=== PATIENT | male | born 1955 | race Caucasian/White ===

== ENCOUNTER 2019-06-16 10:11 | Outpatient (CLI) | payer BC, SELFPAY ==
--- NOTE | ~2019-06-16 | US_ITS ---
US right upper quadrant DATE: 06/16/2019 10:47 INDICATION: Hepatomegaly. Status post cholecystectomy. TECHNIQUE: Real-time imaging and color flow imaging and Doppler analysis of the right upper quadrant COMPARISON: None FINDINGS: No hepatic space-occupying mass lesion is detected. There is normal hepatic portal venous f low direction. The pancreas is largely obscured by bowel gas. The gallbladder is surgically absent. The common bile duct measures 2.4 mm. IMPRESSION: The pancreas is largely obscured by bowel gas Status post cholecystectomy Reviewed, dictated and finalized at [facility]. Reviewed, dictated and finalized at location A.
== END 2019-06-16 10:12 | disposition home or self-care (01) ==
PROVIDERS: PCP Family Medicine; Visit Provider Internal Medicine Gastroenterology
DX: R16.0 Hepatomegaly, not elsewhere classified (principal)
CPT/HCPCS: 76705

== ENCOUNTER → 2022-11-16 11:14 | Outpatient (CLI) | payer MEDICARE, SELFPAY ==
--- NOTE | ~2022-11-16 | US_ITS ---
EXAMINATION: US soft tissue head and neck DATE: 11/16/2022 11:37 INDICATION: Right neck mass. TECHNIQUE: Multiple grayscale and Doppler ultrasound images of the neck were obtained. COMPARISON: None FINDINGS: In the right neck, there is a 3.7 x 1.8 x 3.0 cm mixed cystic and solid hypoechoic mass wit h internal vascular flow in a major salivary gland that is likely the right parotid gland. IMPRESSION: 1. 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 The differential diagnosis includes benign mixed tumor, Warthin tumor, and less likely primary malignancy or sophie metastatic disease. Reviewed, dictated and finalized at location A. IMPRESSION: 1. 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 The differential diagnosis includes benign mixed tumor, Warthin tumor, and less likely primary malignancy or sophie metastatic di [place].
== END ==
PROVIDERS: PCP Family Medicine; Visit Provider Family Medicine
DX: R22.1 Localized swelling, mass and lump, neck (principal); D11.0 Benign neoplasm of parotid gland
CPT/HCPCS: 76536

== ENCOUNTER 2023-03-17 07:54 | Outpatient (NON) | payer MEDICARE, SELFPAY | END 2023-03-17 07:55 | disposition home or self-care (01) | PROVIDERS: PCP Family Medicine; Visit Provider Internal Medicine Gastroenterology | DX: Z86.010 Personal history of colon polyps (principal) | CPT/HCPCS: 88305 ==

== ENCOUNTER 2023-03-17 08:49 | Day surgery (SDC) | payer MEDICARE, SELFPAY ==
[2023-02-12 09:57] VITALS: BMI 22.0
[2023-02-15 13:18] VITALS: BMI 22.2
--- NOTE | 2023-02-26 08:29 | SUR.PREOP ---
pt states no change in recent health hx/no new meds/new time and date provided/acknowledges understanding
[2023-03-17 09:33] VITALS: BP 150/79; PULSE 99; RESP 18; TEMP 37.4; O2SAT 100
[2023-03-17] MEDS: LACTATED RINGERS 1,000 ML 150 ML IV CONT (09:45)
--- NOTE | 2023-03-17 10:05 | PM.HPGS ---
History of Present Illness History of Present Illness Consent: Risks, benefits, and alternatives have been discussed and questions answered. Patient agrees to proceed with procedure. Chief complaint: Hx colon polyps, hx of Ordonez's Esophagus Narrative: Sumit Mar is a 67 year old male presents for both colonoscopy and EGD. Has a history of colon polyps removed the colon 4 years ago. This was performed in [place]. Patient also was told he had Ordonez's esophagus. He was placed on pantoprazole 20mg p.o. daily. This was recently increased to40mg p.o. daily. Patient denies any dysphagia. Apparently there was no dysplasia. Patient has decided against ablation therapy which had previously been recommended. Current management decisions suggested this was appropriate. Follow-up EGD advised at this time Review of Systems Review of Systems: Review of systems noncontributory. [facility] Past Medical History Medical History Allergies Anxiety GERD (gastroesophageal reflux disease) Surgical History Surgical History Hx laparoscopic cholecystectomy Family History Family History Other Family history of cardiovascular disease Social History Social History Smoking status: Never smoker Smoking end date: 02/09/96 Alcohol intake: current Substance use: never Living arrangements: with family Additional living arrangements comments: Spiritual care concerns: No Meds Home Medications and Allergies Home Medications Medication Instructions Recorded Confirmed Type alprazolam 1 mg tablet 1 mg PO TID PRN Anxiety 01/19/23 03/17/23 History pantoprazole 20 mg tablet,delayed 20 mg PO QAM 01/19/23 03/17/23 History release tamsulosin 0.4 mg capsule 0.4 mg PO DAILY 01/19/23 03/17/23 History Allergies Allergy/AdvReac Type Severity Reaction Status Date / Time No Known Allergies Allergy Mild Verified 03/17/23 09:29 Vital Signs Vital Signs - 24 hr 03/17/23 09:33 Temperature 99.3 F Pulse Rate 99 Respiratory Rate 18 Blood Pressure 150/79 H Pulse Oximetry 100 Oxygen Delivery Room Air Exam Narrative: Physical exam reveals patient to be alert. Vital signs stable. HEENT exam is unremarkable. Patient is anicteric. Lungs are clear to auscultation and percussion. Is without murmur or extra sounds. Abdomen sounds are present soft nontender with no organomegaly. Digital external rectal exam is normal. Assessment and Plan Assessment and plan (1) Personal history of colonic polyps: Code(s): Z86.010 - Personal history of colonic polyps Status: Acute Assessment and Plan: Has a history of colon polyps removed 4 years ago. Plan for surveillance colonoscopy now and consider this at 5 year intervals. Further recommendations may be given after endoscopy. (2) Ordonez's esophagus: Code(s): K22.70 - Ordonez's esophagus without dysplasia Status: Acute Assessment and Plan: Patient known Ordonez's esophagus. Follow-up EGD advised at this time. I understand no dysplasia was found the time of last endoscopy. Continue to p.o. daily and antireflux measures are encouraged at this time.
--- NOTE | 2023-03-17 10:31 | WPDANESEPPF ---
Anes - Initial Pre Proc Eval Procedure: Operation Date: 03/17/23 11:00 Proposed Procedures p Esophagogastroduodenoscopy - Steve Camp MD s Colonoscopy - Steve Camp MD Date/Time: 03/17/23 10:31 Surgeon: Steve Camp MD Pre Op Diagnosis: Hx colon polyps, hx of Ordonez's Esophagus Patient Data Age: 67 Gender: M Height: 1.78 m Weight: 68.6 kg Last Vital Signs Temp 37.4 C 03/17/23 09:33 Pulse 99 03/17/23 09:33 Resp 18 03/17/23 09:33 BP 150/79 H 03/17/23 09:33 Pulse Ox 100 03/17/23 09:33 O2 Del Method Room Air 03/17/23 09:33 Allergies Allergy/AdvReac Type Severity Reaction Status Date / Time No Known Allergies Allergy Mild Verified 03/17/23 09:29 Home Medications Medication Instructions Recorded Confirmed Type alprazolam 1 mg tablet 1 mg PO TID PRN Anxiety 01/19/23 03/17/23 History pantoprazole 20 mg tablet,delayed 20 mg PO QAM 01/19/23 03/17/23 History release tamsulosin 0.4 mg capsule 0.4 mg PO DAILY 01/19/23 03/17/23 History Patient hx anesthesia problems: none Family hx anesthesia problems: none Results Review: All pre-operative results and documents have been reviewed as part of the pre-operative evaluation. [facility] Past Medical History Medical History Allergies Anxiety GERD (gastroesophageal reflux disease) Surgical History Surgical History Hx laparoscopic cholecystectomy Family History Family History Other Family history of cardiovascular disease Social History Social History Smoking status: Never smoker Smoking end date: 02/09/96 Alcohol intake: current Substance use: never Living arrangements: with family Additional living arrangements comments: Spiritual care concerns: No Anes - Eval Final PreProcedure Day of Procedure 03/17/23 10:31 Patient weight: normal Heart: regular rate and rhythm Lungs: decreased breath sounds Airway: Mallampati scale class II Neurological: alert and oriented Last oral intake: >/= 8 hours ASA classification: III Emergent: no Anesthetic plan: proceed Anesthesia type and monitoring: general GIVS and standard monitoring Results Review: All pre-operative results and documents have been reviewed as part of the pre-operative evaluation. Informed Consent: The patient's anesthetic plan and its attendant risks and benefits were discussed with the patient/family/POA. Questions were solicited and answers provided to the satisfaction of the patient/family/POA.
[2023-03-17 11:10] VITALS: BP 133/78; PULSE 78; RESP 17; O2SAT 97
[2023-03-17 11:20] VITALS: BP 122/82; O2SAT 98
[2023-03-17 11:30] VITALS: BP 121/80; PULSE 76; RESP 17; O2SAT 98
--- NOTE | 2023-03-17 11:44 | WPDANESPN ---
Anes - Prog Note Post-Op Date/Time: 03/17/23 11:44 Cardiovascular status: normal Respiratory status: normal Airway patency: baseline Mental status: baseline Post-Op hydration status: normal Vital Signs: Last Vital Signs Temp 37.4 C 03/17/23 09:33 Pulse 78 03/17/23 11:10 Resp 17 03/17/23 11:10 BP 122/82 03/17/23 11:20 Pulse Ox 98 03/17/23 11:20 O2 Del Method Room Air 03/17/23 11:20 Pain Score (VAS): 0 Patient Feedback: Patient satisfied with anesthetic care.
== END 2023-03-17 11:54 | disposition home or self-care (01) ==
PROVIDERS: PCP Family Medicine; Visit Provider Internal Medicine Gastroenterology
PROC: 0DJ08ZZ Inspection of Upper Intestinal Tract, Via Natural or Artificial Opening Endoscopic (ICD-10-PCS; CPT 43235; principal; 2023-03-17 11:00)
PROC: 0DJD8ZZ Inspection of Lower Intestinal Tract, Via Natural or Artificial Opening Endoscopic (ICD-10-PCS; CPT 45378; 2023-03-17 11:00)
DX: Z86.010 Personal history of colon polyps (principal); K22.70 Barrett's esophagus without dysplasia; D12.5 Benign neoplasm of sigmoid colon; K57.30 Diverticulosis of large intestine without perforation or abscess without bleeding; K64.8 Other hemorrhoids
CPT/HCPCS: 45385; 43239

== ENCOUNTER 2024-04-03 11:51 | Outpatient (CLI) | payer MEDICARE, MEDICAID, SELFPAY ==
--- OUTSIDE RECORDS SUMMARY | 2024-04-03 13:42 | XMS_ITS | CONTINUITY OF CARE DOCUMENT ---
Author Name ranjithgiannitrudy Address Unknown Organization [facility] Address [address] [place] [address] Phone [phone] Care Team Providers Care Armoured Corps Officer Name Role Phone Casimiro BURCH, Ricky Unavailable [phone] Hayley BURCH, Shanon Unavailable [phone] Shanon Hardy MD Unavailable [phone] INSURANCE PROVIDERS Payer name Policy type / Coverage type [place] red constitution party ID AARP MEDICARE ADVANTAGE HMO-POS HMO [id number]
--- OUTSIDE RECORDS SUMMARY | 2024-04-03 13:42 | XMS_ITS | Referral Summary ---
Author Organization [facility] Address [address] [place] [address] Care Team Providers Care Bilingual Customer Service Specialist Name Role Phone Shanon Sheehan MD Primary Care Provider + Allergies No known active allergies Medications ALPRAZolam (XANAX) 1 mg tabletIndication s:anxiety Take 0.5 mg by mouth nightly as needed for anxiety Active pantoprazole DR (PROTONIX) 40 mg EC tabletIndication s:Treatment of Non-Bleeding Gastric Disorder Take 1 tablet (40 mg total) by mouth every morning Active tamsulosin (FLOMAX) 0.4 mg extended release capsuleIndicatio ns:benign prostatic hyperplasia with lower urinary tract sx Take 1 capsule (0.4 mg total) by mouth every morning Active cholecalciferol (VITAMIN D-3) 1,000 unitIndications: supplement Take 1 tablet/capsule (1,000 Units total) by mouth every morning Active ibuprofen 200 mg tab/cap Take 4 tablet/capsule (800 mg total) by mouth every 6 (six) hours as needed for pain Active acetaminophen (TYLENOL) 500 mg tablet Take 2 tablets (1,000 mg total) by mouth every 6 (six) hours as needed for pain Active cannabidiol, CBD, (EPIDIOLEX) 100 mg/mL solution Take by mouth Active oxyCODONE (ROXICODONE) 5 mg immediate release tabletIndication s:Pain Take 1 tablet (5 mg total) by mouth every 4 (four) hours as needed for pain 30 tablet 4 Active Additional Information Patient not taking.Reported on 06/23/2023 Active Problems Problem Noted Date Diagnosed Date Parotid mass 04/14/2023 Overview (06/23/2023): DIAGNOSIS: Right parotid tumor PROCEDURE PERFORMED: ([facility]ius 06/07/23) Right parotidectomy Lytic bone lesion of left femur 05/11/2017 Social History Tobacco Use Types Packs/Day Years Used Date Smoking Tobacco: Former Smokeless Tobacco: Never Tobacco Cessation:Counseling Given: Not Answered AUDIT-C Answer Date Recorded Q1: How often do you have a drink containing alc ohol? Monthly or less 05/31/2023 Q2: How many drinks containi ng alcohol do you have on a typical day when you are drinking? 1 or 2 05/31/2023 Q3: How often do you have si x or more drinks on one occasion? Never 05/31/2023 Personal Safety Answer Date Recorded Have you ever been in or are you currently in a harmful physical or emotional relationship or is someone making you feel afraid or unsafe? 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 Gender Identity Not on file Sexual Orientation Not on file Last Filed Vital Signs Vital Sign Reading Time Taken Comments Blood Pressure 131/78 06/07/2023 6:10 PM CDT Pulse 55 06/07/2023 6:10 PM CDT Temperature 36.6 C (97.9 F) 06/07/2023 6:30 PM CDT Respiratory Rate 12 06/07/2023 6:10 PM CDT Oxygen Saturation 100% 06/07/2023 6:10 PM CDT Inhaled Oxygen Concentration - - Weight 71.7 kg (158 lb) 06/23/2023 10:46 AM CDT Height 177.8 cm (5' 10 ) 06/23/2023 10:46 AM CDT Body Mass Index 22.67 06/23/2023 10:46 AM CDT Plan of Treatment Not on file Procedures Procedure Name Priority Date/Time Associated Diagnosis Comments CT ABDOMEN PELVIS W CONTRAST Routine 12/02/2015 8:25 PM CDT from Last 3 Months or Most Recently Relevant to Health Maintenance Results * CT Abdomen Pelvis W Contrast (12/02/2015 8:25 PM CDT) Anatomical Region Laterality Modality Body N/A Computed Tomogra phy 12/02/2015 8:25 PM CDT Impressions 12/02/2015 10:16 PM CDT Suspected acute calculus cholecystitis. See above. Automated exposure control was used as a dose optimization technique for this examination. THIS IS AN ELECTRONICALLY VERIFIED REPORT 12/02/2015 10:12 PM: Cher Andrade M.D. Cher Andrade M.D. JS:[email or web address] 10:12 PM 10:12 PM [facility] [EOD] Narrative 12/02/2015 10:16 PM CDT EXAMINATION: CT ABDOMEN AND PELVIS WITH INTRAVENOUS CONTRAST HISTORY: Diffuse, intermittent abdominal pain for 1 month, denies vomiting, normal bowel movement this morning, hypotensive, acute onset symptoms COMPARISON: None available TECHNIQUE: Axial computed tomography of the abdomen and pelvis with intravenous contrast administration per standard protocol; coronal and sagittal reformatted images; 100 mL Omnipaque 350 intravenously at the right antecubital fossa without incident FINDINGS: The heart size is unremarkable. There is no pericardial fluid. The lung bases are unremarkable. There is gallbladder wall thickening and pericholecystic fluid most consistent with acute cholecystitis. Hyperdensities within the gallbladder lumen concerning for small gallstones, one of which appears to be within the gallbladder neck or cystic duct. The liver, spleen, pancreas, adrenal glands and kidneys are unremarkable as evaluated. The stomach is partially distended, grossly unremarkable. The small bowel is unremarkable as imaged. Gas and stool are present throughout a normal-caliber colon. Colonic diverticulosis is visible. The appendix is normal. There is no free intraperitoneal gas or dependent free pelvic fluid. There is what is likely a diverticulum at the posterior aspect of the bladder on the right. Pelvic phleboliths are noted. The prostate is unremarkable. There is atherosclerotic calcification within the major arterial vasculature. There is no obvious lymphadenopathy. A hernia repair is noted at the left inguinal region. Bone windows reveal no acute fracture or suspicious lytic/blastic lesion. Degenerative joint disease is noted. There is a lytic focus within the medullary cavity of the left proximal femur with a thickened sclerotic rim, nonspecific. Procedure Note Provider, MD Delta - 06/25/2020 EXAMINATION: CT ABDOMEN AND PELVIS WITH INTRAVENOUS CONTRAST HISTORY: Diffuse, intermittent abdominal pain for 1 month, deniesvomiting, normal bowel movement this morning, hypotensive, acute onset symptoms COMPARISON: None available TECHNIQUE: Axial computed tomography of the abdomen and pelvis with intravenous contrast administration per standard protocol; coronal and sagittal reformatted images; 100 mL Omnipaque 350 intravenously at theright antecubital fossa without incident FINDINGS: The heart size is unremarkable. There is no pericardial fluid. The lungbases are unremarkable. There is gallbladder wall thickening and pericholecystic fluid mostconsistent with acute cholecystitis. Hyperdensities within the gallbladder lumen concerning for small gallstones, one of which appears to be within the gallbladder neck or cystic duct. The liver, spleen, pancreas, adrenalglands and kidneys are unremarkable as evaluated. The stomach is partially distended, grossly unremarkable. The small bowelis unremarkable as imaged. Gas and stool are present throughout anormal-caliber colon. Colonic diverticulosis is visible. The appendix is normal. Thereis no free intraperitoneal gas or dependent free pelvic fluid. There is what is likely a diverticulum at the posterior aspect of thebladder on the right. Pelvic phleboliths are noted. The prostate isunremarkable. There is atherosclerotic calcification within the major arterialvasculature. There is no obvious lymphadenopathy. A hernia repair is noted at the left inguinal region. Bone windows reveal no acute fracture or suspicious lytic/blastic lesion. Degenerative joint disease is noted. There is a lytic focus within the medullary cavity of the left proximal femur with a thickened scleroticrim, nonspecific. IMPRESSION: Suspected acute calculus cholecystitis. See above. Automated exposure control was used as a dose optimization technique forthis examination. THIS IS AN ELECTRONICALLY VERIFIED REPORT 12/02/2015 10:12 PM: Cher Andrade M.D. Cher Andrade M.D. JS:erwin Munguia: 12/02/201510:12 PM 10:12 PM [facility] [EOD] Chavez Palomares II, MD IMG CT PROCEDURES Final R esult from Last 3 Months or Most Recently Relevant to Health Maintenance Insurance [facility] MEDICARE SOLUTIONS [facility] MEDICARE SOLUTIONS IDPA Care Teams Bilingual Customer Service Specialist Relationship Specialty Start Date End Date Shanon Sheehan MD [address] [place] [address] [place] [address] PCP - General Family Medicine 05/18/23
--- OUTSIDE RECORDS SUMMARY | 2024-04-03 13:42 | XMS_ITS | Clinical Summary ---
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 Gender Identity Not on file Sexual Orientation Not on file Obstetrics History Last Filed Vital Signs Vital Sign Reading [...] 06/23/2023 10:46 AM CDT Plan of Treatment Health Maintenance Due Date Last Done Comments Colon Cancer Screening-Colonoscopy 1955 Depression Screening 1955 Hepatitis C Screening 1955 Prostate Cancer Screening-PSA 1956 Hepatitis B Screening 1974 Pneumococcal vaccine 65+ (1 of 1 - PCV) 2006 Zoster Vaccine (1 of 2) 2006 Abdominal Aortic Aneurysm (A AA) Screen 2021 12/02/2015 Well Visit 65+ 2021 Influenza Vaccine (#1) 2023 0, 11/03/2018, 11/10/2017, Additional history exists Fall Risk Assessment 06/06/2024 06/07/2023 DTaP/Tdap/Td Vaccine (2 - Td or Tdap) 11/12/2026 11/12/2016 Procedures Procedure Name Priority Date/Time Associated Diagnosis [...] Andrade M.D. [email or web address] 10:12 PM 10:12 PM [facility] [EOD] Narrative 12/02/2015 10:16 PM CDT EXAMINATION: [...] [email or web address]:erwin 10:12 PM 10:12 PM [facility] [EOD] Chavez Palomares II, MD IMG CT PROCEDURES Final R esult from Last 3 Months or Most Recently Relevant to Health Maintenance Insurance [employer] MED[employer] SOLUTIONS IDPA MEDICARE AdT[employer] IDPA Care Teams Site Auditor Relationship Specialty Start Date End Date Shanon Sheehan MD [address] [address] PCP - General Family Medicine 05/18/23
--- OUTSIDE RECORDS SUMMARY | 2024-04-03 13:42 | XMS_ITS | Clinical Summary ---
Author Organization [facility] Address [address] [place] [address] Care Team Providers Care Papier Mache Molder Name Role Phone Unavailable Primary Care Provider Unavailabl e Social History Tobacco Use Types Packs/Day Years Used Date Smoking Tobacco: Never Assessed Sex and Gender Information Value Date Recorded Sex Assigned at Not on file Legal Sex Male 7:20 PM CDT Gender Identity Not on file Sexual Orientation Not on file Plan of Treatment Health Maintenance Due Date Last Done Comments Colorectal Cancer Screening Colonoscopy (10 Years) 1956 Hepatitis C 1974 DTaP, Tdap and Td Vaccines ( 1 - Tdap) 12/22/1975 Zoster Vaccines (1 of 2) 2006 Pneumococcal Vaccine: 65+ Ye ars (1 of 1 - PCV) 2021 COVID-19 Vaccine ( - 2023-2 5 season) 2023 Influenza Adult (#1) 2023 RSV Immunization or 60+ Years (1 - 1-dose 75+ series) 12/22/2031 Meningococcal B Vaccine Aged Out No l onger eligible based on patient's age to complete this topic Meningococcal Vaccine Aged Out No shola desiree eligible based on patient's age to complete this topic RSV Immunizations Under 20 Months Aged Out No longer eligible based on patient's age to complete this topic
[2024-04-03 20:07] LABS: Alanine Aminotransferase 19 U/L (6-50); Alkaline Phosphatase 81 U/L (38-126); Anion Gap 6 mmol/L (4-12); Aspartate Amino Transferase 54 U/L (17-59); Bilirubin,Total 0.4 mg/dL (0.2-1.3); Blood Urea Nitrogen 14 mg/dL (9-20); Carbon Dioxide 31 mmol/L (22-30); Chloride 103 mmol/L (98-107); Estimated Glomerular Filt Rate > 60; Glucose 90 mg/dL (65-110); Potassium 5.2 mmol/L (3.4-5.0); Sodium 140 mmol/L (137-145)
[2024-04-03 20:30] LABS: Prostate Specific Antigen 2.2 ng/mL (< OR = 4.0)
[2024-04-03 21:26] LABS: Hemoglobin A1C 5.7 % (<5.7)
== END 2024-04-03 11:52 | disposition home or self-care (01) ==
LOC: ANHBWCLAB 11:54
PROVIDERS: PCP Nurse Practitioner Adult Health; Visit Provider Nurse Practitioner Adult Health
DX: Z12.5 Encounter for screening for malignant neoplasm of prostate (principal); R73.9 Hyperglycemia, unspecified; R73.03 Prediabetes
CPT/HCPCS: 36415; 80053; 83036; 84153; G0103

== ENCOUNTER 2024-04-04 10:12 | Outpatient (CLI) | payer MEDICARE, MEDICAID, SELFPAY ==
--- OUTSIDE RECORDS SUMMARY | 2024-04-04 11:51 | XMS_ITS | Clinical Summary ---
Author Organization [facility] Building [facility] Address [address] [place] [address] Care Team Providers Care Prison Officer Name Role Phone Shanon Sheehan MD Primary [...] on file Legal Sex Male 6:03 AM RESIN SHAVER Gender Identity Not on file Sexual Orientation [...] Andrade M.D. [email or web address] 10:12 PM 10:12 PM [facility] [EOD] Narrative 12/02/2015 10:16 PM CDT EXAMINATION: [...] Insurance [employer] MED[employer] SOLUTIONS IDPA MEDICARE CampaignerCRM IDPA Care Teams Prison Officer Relationship Specialty Start Date End Date Shanon Sheehan MD [address] [address] PCP - General Family Medicine 05/18/23
--- OUTSIDE RECORDS SUMMARY | 2024-04-04 11:51 | XMS_ITS | Referral Summary ---
Author Organization [facility] Medical Office Building [facility] Address [address] [place] [address] Care Team Providers Care Cable Swager Name Role Phone Shanon Sheehan MD Primary [...] on file Legal Sex Male 6:03 AM UC ARCHITECT Gender Identity Not on file Sexual Orientation [...] Most Recently Relevant to Health Maintenance Insurance [facility] Address: [address] [place] [address] MEDICARE SOLUTIONS [facility] MEDICARE SOLUTIONS IDPA Care Teams Cable Swager Relationship Specialty Start Date End Date Sahnon Sheehan MD [address] [place] [address] [place] [address] PCP - General Family Medicine 05/18/23
--- OUTSIDE RECORDS SUMMARY | 2024-04-04 11:51 | XMS_ITS | Clinical Summary ---
Author Organization [facility] Address [address] [place] [address] Care Team Providers Care Scale Assembly Set Up Worker Name Role Phone Unavailable Primary Care Provider [...]
--- OUTSIDE RECORDS SUMMARY | 2024-04-04 11:52 | XMS_ITS | CONTINUITY OF CARE DOCUMENT ---
Author Name ranjithgiannitrudy Address Unknown Organization [facility] Address [address] [place] [address] Phone [phone] Care Team Providers Care Cyber Security Architect Name Role Phone Casimiro BURCH, Ricky Unavailable Hayley BURCH, Shanon Unavailable Shanon Hardy MD Unavailable [phone] INSURANCE PROVIDERS Payer name Policy type / Coverage type [place] red libertarian ID AARP MEDICARE ADVANTAGE HMO-POS HMO [id number]
[2024-04-04 19:12] LABS: Potassium 4.5 mmol/L (3.4-5.0)
== END 2024-04-04 10:13 | disposition home or self-care (01) ==
PROVIDERS: PCP Nurse Practitioner Adult Health; Visit Provider Nurse Practitioner Adult Health
DX: E87.5 Hyperkalemia (principal)
CPT/HCPCS: 36415; 84132